=== PATIENT | female | born 1965 | race Caucasian/White ===

== ENCOUNTER → 2017-01-21 | Day surgery (SDC) | payer OTHER ==
[~2017-01-21] VITALS: Ht 172.7 cm; Wt 97.5 kg
[~2017-01-21] MED LIST: *RESP: ALBUTEROL 2.5 MG/3 ML NEB (PRN) PERIprocedural Use ONLY NEB ONE; ACETAMINOPHEN 1000 MG/100 ML VIAL IV ONE; AMLO10TA2 PO; ATEN100T PO; CHLORHEXIDINE GLUCONATE 2 % 1 PACK (2 CLOTHS) TOPICAL PRN; CLON0.2T PO; DEXAMETHASONE SOD PHOS 4 MG/ML VIAL ONE; DO NOT ADM ANY ANTICOAGULANT DRUGS PRN; ESTR0.62 VAGINAL; ESTR42.5V VAGINAL; FAMOTIDINE 20 MG/2 ML VIAL ONE; FURO40TA PO; HYDROmorphone HCL PF 1 MG/ML VIAL IV PRN; IBUP800T23 PO; INSULIN HUMAN REGULAR 1,000 UNITS/10 ML VIAL SQ PRN; LACTATED RINGER'S 1000 ML IV PRN; METOPROLOL TARTRATE 25 MG TAB PO PRN; MIDAZOLAM HCL 2 MG/2 ML VIAL ONE; MORPHINE SULFATE 4 MG/ML INJ ONE; NEUR300C PO; ONDANSETRON HCL 4 MG/2 ML VIAL IV PUSH ONE; ONDANSETRON HCL 4 MG/2 ML VIAL IV PUSH PRN; PERC5TAB12 PO; PLAV75TA29 PO; POTA-163 PO; POVIDONE IODINE 5% (ANTISEPSIS KIT) 4 APPLICATIONS EACH NARE PRN; PROPOFOL 200 MG/20 ML AMP IV ONE; SIMV20TA PO; SODIUM CHLORID 0.9% 500 ML IV PRN; TRAZ100T6 PO; VENL150C39 PO; VENL75TA PO; ZOFR4TAB PO; ceFAZolin 1,000 MG/NS 100 ML IV SCH; fentaNYL CITRATE 250 MCG/5 ML AMP ONE; oxyCODONE/ACETAMINOPHEN 10 MG/325 MG TAB PO PRN
--- NOTE | 2017-01-21 06:14 | RADRPT ---
EXAM DATE/TIME: 01/21/2017 05:44 [facility] COMPARISON: No previous studies available for comparison. INDICATIONS : Abdomen pain. Pre-OP lithotripsy. MEDICAL HISTORY : None. SURGICAL HISTORY : None. ENCOUNTER: Initial ACUITY: 1 day PAIN SCORE: 0/10 LOCATION: Bilateral abdomen FINDINGS: There is an approximately 8 mm stone faintly seen projecting over the right upper pole and probably 3 and 5 mm stones of the left lower pole. No perceptible ureteral calculus. Bowel gas pattern is nonob structive. CONCLUSION: Faint bilateral renal stones as above. No perceptible ureteral calculus. Nonobstructive bowel gas pat tern. Lino Morales MD on January 21, 2017 at 6:10 Board Certified Radiologist. This report was verified electronically.
[2017-01-21 06:17] VITALS: BP 111/72; PULSE 77; RESP 18; TEMP 98.4; O2SAT 96
--- NOTE | 2017-01-21 06:44 | EKG ---
Date Performed: 01/21/2017 Time Performed: 06:29:02 PTAGE: 52 years EKG: Sinus rhythm LEFT AXIS DEVIATION ANTEROSEPTAL MYOCARDIAL INFARCTION , OF INDETERMINATE AGE ABNORMAL ECG NO PREVIOUS TRACING DOCTOR: Matteo Lund Interpretating Date/Time 01/21/2017 06:43:03
[2017-01-21 06:56] LABS: AUTOMATED NEUTROPHIL # 5.1 TH/MM3 (1.8-7.7); BASOPHIL # 0.1 TH/MM3 (0-0.2); BASOPHIL % 1.1 % (0.0-2.0); EOSINOPHIL # 0.3 TH/MM3 (0-0.4); EOSINOPHIL % 3.4 % (0.0-4.0); HEMATOCRIT 34.3 % (35.0-46.0); HEMO FLAGS DIFF FINAL; LYMPH % 26.5 % (9.0-44.0); LYMPHOCYTE # 2.3 TH/MM3 (1.0-4.8); MEAN CELL VOLUME 94.7 FL (80.0-100.0); MEAN CORPUSCULAR HEMOGLOBIN 32.7 PG (27.0-34.0); MEAN CORPUSCULAR HGB CONC 34.5 % (32.0-36.0); MONO % 10.9 % (0.0-8.0); NEUT % 58.1 % (16.0-70.0); PLATELET COUNT 177 TH/MM3 (150-450); RED BLOOD COUNT 3.62 MIL/MM3 (4.00-5.30); RED CELL DISTRIBUTION WIDTH 15.9 % (11.6-17.2); WHITE BLOOD COUNT 8.8 TH/MM3 (4.0-11.0)
--- NOTE | 2017-01-21 08:32 | PD.OP ---
Operative Report Date of Surgery: Jan 21, 2017 Preoperative Diagnosis: Left lower pole renal calculi Postoperative Diagnosis: Same Procedure: Left extracoporeal shockwave lithotripsy Anesthesia: Gen. LMA Surgeon: Kartik Borges Building Guard Deputy Sheriff(s): None Resident Surgeon: None Operation and Findings: 52-year-old female with findings of left lower pole renal calculi who elected to undergo left extracoporeal shockwave lithotripsy. Risk and benefits were discussed preoperatively and she is willing to proceed. Patient is brought to the operating room identified myself as Summer Goff. She was placed on the operating room table in the supine position, received preprocedure antibiotics and general LMA anesthesia was administered. The stone was localized under fluoroscopic imaging guidance. ESWL therapy commenced. Patient received a total 2500 shocks with power level up to 10. Patient received a total of 2500 shocks. Good fragmentation the stone was visualized under fluoroscopic imaging guidance. She tolerated procedure well was we'll consider transfer to recovery was stable condition. She'll follow-up in 2 weeks and obtain a KUB x-ray prior to her office visit. Kartik Borges DO Jan 21, 2017 08:32
[2017-01-21 10:27] VITALS: BP 107/62; PULSE 76; RESP 18; TEMP 98; O2SAT 97
== END | disposition home or self-care (01) ==
LOC: HSDC 05:25
PROVIDERS: ATTEND Urology
DX: N20.0 Calculus of kidney (principal); R94.31 Abnormal electrocardiogram [ECG] [EKG]
CPT/HCPCS: 00873; 50590; 74000; 85025; 93005; J0131; J0690; J1100; J2250; J2270; J2405; J3010; J7120; J7613

== ENCOUNTER → 2017-02-19 | Outpatient (CLI) | payer OTHER ==
[~2017-02-19] MED LIST changes: -*RESP: ALBUTEROL 2.5 MG/3 ML NEB (PRN) PERIprocedural Use ONLY NEB ONE; -ACETAMINOPHEN 1000 MG/100 ML VIAL IV ONE; -CHLORHEXIDINE GLUCONATE 2 % 1 PACK (2 CLOTHS) TOPICAL PRN; -DEXAMETHASONE SOD PHOS 4 MG/ML VIAL ONE; -DO NOT ADM ANY ANTICOAGULANT DRUGS PRN; -ESTR42.5V VAGINAL; -FAMOTIDINE 20 MG/2 ML VIAL ONE; -HYDROmorphone HCL PF 1 MG/ML VIAL IV PRN; -INSULIN HUMAN REGULAR 1,000 UNITS/10 ML VIAL SQ PRN; -LACTATED RINGER'S 1000 ML IV PRN; -METOPROLOL TARTRATE 25 MG TAB PO PRN; -MIDAZOLAM HCL 2 MG/2 ML VIAL ONE; -MORPHINE SULFATE 4 MG/ML INJ ONE; -ONDANSETRON HCL 4 MG/2 ML VIAL IV PUSH ONE; -ONDANSETRON HCL 4 MG/2 ML VIAL IV PUSH PRN; -POVIDONE IODINE 5% (ANTISEPSIS KIT) 4 APPLICATIONS EACH NARE PRN; -PROPOFOL 200 MG/20 ML AMP IV ONE; -SODIUM CHLORID 0.9% 500 ML IV PRN; -VENL75TA PO; -ZOFR4TAB PO; -ceFAZolin 1,000 MG/NS 100 ML IV SCH; -fentaNYL CITRATE 250 MCG/5 ML AMP ONE; -oxyCODONE/ACETAMINOPHEN 10 MG/325 MG TAB PO PRN
[2017-02-19 10:13] LABS: AUTOMATED NEUTROPHIL # 7.4 TH/MM3 (1.8-7.7); BASOPHIL # 0.1 TH/MM3 (0-0.2); BASOPHIL % 0.8 % (0.0-2.0); EOSINOPHIL # 0.3 TH/MM3 (0-0.4); EOSINOPHIL % 2.7 % (0.0-4.0); HEMATOCRIT 39.7 % (35.0-46.0); HEMO FLAGS DIFF FINAL; LYMPHOCYTE # 2.3 TH/MM3 (1.0-4.8); MEAN CELL VOLUME 96.7 FL (80.0-100.0); MEAN CORPUSCULAR HEMOGLOBIN 32.5 PG (27.0-34.0); MEAN CORPUSCULAR HGB CONC 33.6 % (32.0-36.0); MONO % 8.6 % (0.0-8.0); NEUT % 66.9 % (16.0-70.0); PLATELET COUNT 243 TH/MM3 (150-450); RED CELL DISTRIBUTION WIDTH 16.2 % (11.6-17.2); WHITE BLOOD COUNT 11.1 TH/MM3 (4.0-11.0)
[2017-02-19 10:21] LABS: BACTERIA, URINE OCC /hpf; BLOOD, URINE NEG (NEG); COMMENT (UR) CULT NOT INDICATED; CULTURE IF INDICATED CULT NOT INDICATED; GLUCOSE,URINE NEG (NEG); KETONE, URINE NEG (NEG); NITRITE,URINE NEG (NEG); SQUAMOUS EPITHELIAL CELL URINE 8 /hpf (0-5); URINE COLOR YELLOW (YELLW/STRAW)
[2017-02-19 10:37] LABS: ANION GAP 7 MEQ/L (5-15); AST (GOT) 10 U/L (15-37); BICARBONATE 28.6 MEQ/L (21.0-32.0); BLOOD UREA NITROGEN 16 MG/DL (7-18); CHLORIDE 105 MEQ/L (98-107); GLOMERULAR FILTRATION RATE 64 ML/MIN (>89); GLUCOSE,FASTING 175 MG/DL (74-99); POTASSIUM 4.2 MEQ/L (3.5-5.1); SODIUM (NA) 141 MEQ/L (136-145)
[2017-02-19 10:39] LABS: ALKALINE PHOSPHATASE 56 U/L (45-117); ALT (GPT) 29 U/L (10-53); TOTAL BILIRUBIN ADULT 0.2 MG/DL (0.2-1.0)
== END ==
LOC: CPRE 09:39
PROVIDERS: ATTEND Obstetrics & Gynecology Gynecology
DX: Z01.810 Encounter for preprocedural cardiovascular examination (principal); Z01.812 Encounter for preprocedural laboratory examination; N39.3 Stress incontinence (female) (male)
CPT/HCPCS: 36415; 80053; 81001; 85025

== ENCOUNTER → 2017-03-04 | Day surgery (SDC) | payer MEDICAID, OTHER ==
[~2017-03-04] VITALS: Ht 172.7 cm; Wt 96.5 kg
[~2017-03-04] MED LIST changes: +*RESP: ALBUTEROL 2.5 MG/3 ML NEB (PRN) PERIprocedural Use ONLY NEB ONE; +ACETAMINOPHEN 1000 MG/100 ML VIAL IV ONE; +CHLORHEXIDINE GLUCONATE 2 % 1 PACK (2 CLOTHS) TOPICAL PRN; +DEXAMETHASONE SOD PHOS 4 MG/ML VIAL ONE; +DO NOT ADM ANY ANTICOAGULANT DRUGS PRN; +ESTROGENS CONJUGATED VAG CREA 15 APPL/30 GM TUBE ONE; +FAMOTIDINE 20 MG/2 ML VIAL ONE; +FLUORESCEIN SOD 10% SOLN 500 MG/5 ML AMP ONE; +INSULIN HUMAN REGULAR 1,000 UNITS/10 ML VIAL SQ PRN; +KETOROLAC TROMETHAMINE 30 MG/ML (IVP) VIAL IV PUSH PRN; +KETOROLAC TROMETHAMINE 60 MG/2 ML (IM) VIAL IM ONE; +LACTATED RINGER'S 1000 ML IV PRN; +LIDOCAINE 1%/EPINEPHrine 1:100,000 SOLN 20 ML VIAL ONE; +METHYLENE BLUE 10 MG/ML VIAL OTHER ONE; +METOPROLOL TARTRATE 25 MG TAB PO PRN; +MIDAZOLAM HCL 2 MG/2 ML VIAL ONE; +NEOSTIGMINE 3 MG/3 ML SYR IV ONE; +ONDANSETRON HCL 4 MG/2 ML VIAL IV PUSH ONE; +ONDANSETRON HCL 4 MG/2 ML VIAL IV PUSH PRN; +POVIDONE IODINE 5% (ANTISEPSIS KIT) 4 APPLICATIONS EACH NARE PRN; +PROPOFOL 200 MG/20 ML AMP IV ONE; +SODIUM CHLORID 0.9% 500 ML IV PRN; +ceFAZolin 2 GM PREMIX 50 ML IV SCH; +fentaNYL CITRATE 250 MCG/5 ML AMP ONE; +traMADol HCL 50 MG TAB PO PRN
[2017-03-04 07:45] VITALS: BP 115/81; PULSE 61; RESP 18; TEMP 98.1; O2SAT 96
--- NOTE | 2017-03-04 11:28 | MP ---
cc: CHRISTIAN ACOSTA,CHARLOTTE SMILEY MD. DATE OF SURGERY 03/04/2017 PREOPERATIVE DIAGNOSES Stress urinary incontinence and loss of perineal body. POSTOPERATIVE DIAGNOSIS Stress urinary incontinence and loss of perineal body with external sphincter defect from 10 to 2 o'clock position. SURGEON Ryan Braxton MD ANESTHESIA General endotracheal PROCEDURE 1. Transobturator tape using Desara polypropylene sling manufactured by [employer]. 2. Anterior/posterior repair. 3. External sphincteroplasty end-to-end approach. 4. Diagnostic cystoscopy CERTIFIED PROFESSIONAL CONTROLLER Randall staff x2 FLUIDS 1000 cc crystalloid BLOOD LOSS 25 cc URINE OUTPUT 150 cc FINDINGS External genitalia normal. POP-Q score: Aa is -1, Ap is -1. Point C is -8. Total vaginal length is 10. Genital hiatus is 7. Perineal body is 2 which is essentially represented only by a skin bridge. There is very little substance to the perineal body and there is a sphincter defect at the 10 o'clock to 2 o'clock position. Following repair POP-Q score: Aa is -3, Ap is -3. Point C is 08. Total vaginal length is 10. Genital hiatus is 5. Perineal body is 5. The cystoscopy is normal following repair. Rectal exam was normal following repair. Cystoscopy shows normal trigone, good coaptation of urethra. Ureteral orifices patent x2. Dome and base of bladder normal. SPECIMENS None COMPLICATIONS None DISPOSITION To the Recovery Room stable. COUNTS Needle and sponge counts correct. DRAINS Quiroga catheter DVT PROPHYLAXIS Sequential compression device. ANTIBIOTIC PROPHYLAXIS Two grams of Ancef. TIME OUT PROCEDURE Per protocol. SUMMARY OF INDICATIONS FOR THE PROCEDURE The patient with symptomatic stress urinary continence. She has had urodynamic studies performed that shows leaking at 50% capacity, no detrusor instability. Total capacity is approximately 300 cc. The patient also made note of issues with the perineal body. On exam, this is diminished and she wanted this area repaired. PROCEDURE The patient was taken to the operating theater, identified, prepped and draped in a fashion appropriate for the planned procedure. She was in the dorsal lithotomy position with careful attention paid to placement of legs in stirrups to avoid undue stress to sensitive neurovascular structures. The above findings noted. Neurovascular integrity documented. Quiroga catheter was placed. Methylene blue was instilled into the bladder. Obturator foramen were identified, outlined, and infiltrated with epinephrine/lidocaine solution. The vaginal mucosa was infiltrated with epinephrine/lidocaine solution. The length of the urethra was identified by palpating the Quiroga bulb. Sharp dissection was used to mobilize the urethra and the paravesical tissues. There was no spill of methylene blue with dissection. A C-hook was placed in a lateral to medial position on each side of the obturator foramen. Then a polypropylene sling was placed using a scalpel handle as a spacer. This was put in the mid urethra with good position and no undue tensioning. The remainder of the anterior repair was performed in standard fashion. The vaginal mucosa was trimmed. The vaginal mucosa was closed with a running Vicryl suture and hemostatic matrix was used to obviate the need for packing. Cystoscopy was performed using a 17-Faroese bridge and a 70 degree scope with the above findings noted, but no damage to the urethra or dome or base of bladder. Posterior repair performed without complication and this was mainly a distal repair. We used delayed absorbable suture to close the mucosa. The issue with the perineal body was more pronounced than we had anticipated. She actually had very little perineal body and a classic dove tail sign was noted. We performed an external sphincteroplasty end-to-end technique which gave us a good repair of the perineal body and then we did a subcuticular closure with 3-0 Vicryl suture. Delayed absorbable suture of 0-Vicryl was used for the sphincteroplasty. Rectal exam confirmed improvement of the sphincter complex. There was no compromise of the lumen. Hemostasis was good at all suture lines. The patient reversed from anesthesia and taken to the recovery room in stable condition. MD WILLY Scott/JANET /11:00 AM 11:08 AM
[2017-03-04 11:55] VITALS: BP 98/63; PULSE 61; RESP 20; TEMP 97.8; O2SAT 96
== END | disposition home or self-care (01) ==
LOC: HSDC 07:05
PROVIDERS: ATTEND Obstetrics & Gynecology Gynecology
DX: N39.3 Stress incontinence (female) (male) (principal)
CPT/HCPCS: 00942; 57260; 57288; C1771; J0131; J0690; J1100; J1885; J2250; J2405; J2710; J3010; J7120; J7613

== ENCOUNTER → 2017-06-30 | Outpatient (CLI) | payer OTHER ==
[~2017-06-30] MED LIST changes: -*RESP: ALBUTEROL 2.5 MG/3 ML NEB (PRN) PERIprocedural Use ONLY NEB ONE; -ACETAMINOPHEN 1000 MG/100 ML VIAL IV ONE; +ALBUAER3 INH; -CHLORHEXIDINE GLUCONATE 2 % 1 PACK (2 CLOTHS) TOPICAL PRN; -DEXAMETHASONE SOD PHOS 4 MG/ML VIAL ONE; -DO NOT ADM ANY ANTICOAGULANT DRUGS PRN; -ESTROGENS CONJUGATED VAG CREA 15 APPL/30 GM TUBE ONE; -FAMOTIDINE 20 MG/2 ML VIAL ONE; -FLUORESCEIN SOD 10% SOLN 500 MG/5 ML AMP ONE; +IBUP1TAB7 PO; -IBUP800T23 PO; -INSULIN HUMAN REGULAR 1,000 UNITS/10 ML VIAL SQ PRN; -KETOROLAC TROMETHAMINE 30 MG/ML (IVP) VIAL IV PUSH PRN; -KETOROLAC TROMETHAMINE 60 MG/2 ML (IM) VIAL IM ONE; -LACTATED RINGER'S 1000 ML IV PRN; -LIDOCAINE 1%/EPINEPHrine 1:100,000 SOLN 20 ML VIAL ONE; -METHYLENE BLUE 10 MG/ML VIAL OTHER ONE; -METOPROLOL TARTRATE 25 MG TAB PO PRN; -MIDAZOLAM HCL 2 MG/2 ML VIAL ONE; -NEOSTIGMINE 3 MG/3 ML SYR IV ONE; -ONDANSETRON HCL 4 MG/2 ML VIAL IV PUSH ONE; -ONDANSETRON HCL 4 MG/2 ML VIAL IV PUSH PRN; -PERC5TAB12 PO; -POVIDONE IODINE 5% (ANTISEPSIS KIT) 4 APPLICATIONS EACH NARE PRN; -PROPOFOL 200 MG/20 ML AMP IV ONE; -SODIUM CHLORID 0.9% 500 ML IV PRN; +TRAZ100T10 PO; -TRAZ100T6 PO; -ceFAZolin 2 GM PREMIX 50 ML IV SCH; -fentaNYL CITRATE 250 MCG/5 ML AMP ONE; -traMADol HCL 50 MG TAB PO PRN
[2017-06-30 10:44] LABS: AUTOMATED NEUTROPHIL # 5.7 TH/MM3 (1.8-7.7); BASOPHIL # 0.1 TH/MM3 (0-0.2); BASOPHIL % 0.7 % (0.0-2.0); EOSINOPHIL # 0.3 TH/MM3 (0-0.4); EOSINOPHIL % 3.5 % (0.0-4.0); HEMATOCRIT 38.9 % (35.0-46.0); HEMO FLAGS DIFF FINAL; LYMPH % 27.7 % (9.0-44.0); LYMPHOCYTE # 2.6 TH/MM3 (1.0-4.8); MEAN CELL VOLUME 92.8 FL (80.0-100.0); MEAN CORPUSCULAR HEMOGLOBIN 31.8 PG (27.0-34.0); MEAN CORPUSCULAR HGB CONC 34.2 % (32.0-36.0); MONO % 7.4 % (0.0-8.0); NEUT % 60.7 % (16.0-70.0); PLATELET COUNT 193 TH/MM3 (150-450); RED BLOOD COUNT 4.19 MIL/MM3 (4.00-5.30); RED CELL DISTRIBUTION WIDTH 14.2 % (11.6-17.2); WHITE BLOOD COUNT 9.4 TH/MM3 (4.0-11.0)
[2017-06-30 10:45] LABS: BACTERIA, URINE FEW /hpf; BLOOD, URINE SMALL (NEG); COMMENT (UR) CULT NOT INDICATED; CULTURE IF INDICATED CULT NOT INDICATED; GLUCOSE,URINE 70 mg/dL (NEG); KETONE, URINE NEG (NEG); NITRITE,URINE NEG (NEG); PH, URINE 5.5 (5.0-8.5); SQUAMOUS EPITHELIAL CELL URINE 5 /hpf (0-5); URINE COLOR LIGHT-YELLOW (YELLW/STRAW)
[2017-06-30 11:08] LABS: ALT (GPT) 53 U/L (10-53); ANION GAP 7 MEQ/L (5-15); AST (GOT) 23 U/L (15-37); BICARBONATE 28.5 MEQ/L (21.0-32.0); BLOOD UREA NITROGEN 15 MG/DL (7-18); CHLORIDE 103 MEQ/L (98-107); GLOMERULAR FILTRATION RATE 58 ML/MIN (>89); GLUCOSE,FASTING 285 MG/DL (74-99); POTASSIUM 3.9 MEQ/L (3.5-5.1); SODIUM (NA) 138 MEQ/L (136-145)
[2017-06-30 11:10] LABS: ALKALINE PHOSPHATASE 69 U/L (45-117); TOTAL BILIRUBIN ADULT 0.2 MG/DL (0.2-1.0)
== END ==
LOC: CPRE 09:36
PROVIDERS: ATTEND Obstetrics & Gynecology Gynecology
DX: Z01.812 Encounter for preprocedural laboratory examination (principal); Z01.810 Encounter for preprocedural cardiovascular examination; T83.71 Erosion of implanted mesh and other prosthetic materials to surrounding organ or tissue
CPT/HCPCS: 36415; 80053; 81001; 85025

== ENCOUNTER → 2017-07-03 | Day surgery (SDC) | payer MEDICAID, OTHER ==
--- NOTE | 2017-06-30 10:02 | MH ---
cc: MING NUGENT MD DATE OF ADMISSION 07/03/2017 DATE OF 1965 CHIEF COMPLAINT Erosion of midurethral sling. HISTORY OF PRESENT ILLNESS The patient is a 52-year-old white female 5, para 4 who has had a history of total abdominal hysterectomy, anterior posterior repair. She had a procedure for stress incontinence in January of this year and had done well with resolution of incontinence, but after her 8-week visit complained of pain with intercourse. Repeat exam showed erosion of the mid urethral sling. The patient had already been using Premarin vaginal cream and this erosion was approximately 2 cm and I did not feel this would spontaneously close. After discussion with the patient, she has opted for revision of the sling. PAST MEDICAL HISTORY 1. Hypertension 2. Hypercholesterolemia 3. Depression 4. Peripheral neuropathy 5. Distant history of DVT 6. History of substance abuse has been in the recovery for almost four years. PAST SURGICAL HISTORY 1. Abdominal hysterectomy 2. Anterior/posterior repair 3. Hernia repair 4. Tonsillectomy 5. Shock with therapy for nephrolithiasis 6. Transobturator sling anterior repair MEDICATIONS 1. Plavix 75 mg daily 2. Effexor 75 mg daily 3. Ranitidine 150 mg b.i.d. 4. Simvastatin 20 mg q. Day 5. Lasix 40 mg daily 6. Amlodipine 10 mg daily 7. Atenolol 100 mg daily. 8. Trazodone 100 mg q.h.s. 9. Clonidine 0.2 mg b.i.d. 10. Gabapentin 300 mg b.i.d. ALLERGIES CODEINE SOCIAL HISTORY In recovery for drug use. Has done well over the last 3-1/2 almost 4 years. , has a good social support. Smokes one-half to a pack a day. Has a 50 pack-year history of cigarettes. Was previously smoking two packs a day. FAMILY HISTORY Noncontributory OBSTETRICAL HISTORY Five deliveries largest baby 8 pounds. REVIEW OF SYSTEMS As above. No chest pain, orthopnea, PND. No nausea, vomiting, fever, or chills. No vaginal bleeding or discharge. Does have pain with intercourse. No stress incontinence. PHYSICAL EXAM On exam, she is afebrile. Vital signs are stable, height 5.8, weight is 218, BMI is 33, blood pressure 120/70. GENERAL: Patient is alert and oriented acute distress. No sign of cognitive dysfunction or depression. HEENT: Within normal limits. NECK: Supple. No JVD. CHEST: Clear. HEART: Regular rate and rhythm. ABDOMEN: Soft and nontender. No hepatosplenomegaly. No CVA tenderness. PELVIC: The pelvic exam will be detailed under anesthesia, but in the office we note erosion of the sling approximately 2 cm in the mid urethra. Further exam under anesthesia. EXTREMITIES: Normal, skin without rashes. NEUROLOGIC: Exam nonfocal. No DVT signs. ASSESSMENT Patient with erosion of midurethral sling. At this point, after a long discussion, we have decided to remove the eroded area of the sling, revise the anterior wall, perform cystoscopy. We will also try to perform a plication procedure to reduce the chance of recurrent incontinence. The patient is aware of the risks, benefits and alternatives to the planned procedure including damage to surrounding organs, bleeding, infection, incontinence, pain with intercourse. At this point, we will use antibiotic prophylaxis Ancef 1 gram. The patient has a distant history of DVT, but I believe that the sequential compression device will suffice here and we do not need to use additional heparin. Anticipate outpatient procedure. The patient does not want to use Toradol. She would rather use tramadol for pain control and it is reasonable, although she should have very little pain since we are working on the anterior vaginal wall. Anticipate outpatient procedure. MD WILLY Scott/JANET /9:39 AM /9:48 AM
[~2017-07-03] VITALS: Ht 172.7 cm; Wt 94.4 kg
[~2017-07-03] MED LIST changes: +*RESP: ALBUTEROL 2.5 MG/3 ML NEB (PRN) PERIprocedural Use ONLY NEB ONE; +CHLORHEXIDINE GLUCONATE 2 % 1 PACK (2 CLOTHS) TOPICAL PRN; +DEXAMETHASONE SOD PHOS 4 MG/ML VIAL IV ONE; +DO NOT ADM ANY ANTICOAGULANT DRUGS PRN; +GLYCOPYRROLATE 1 MG/5 ML SYRINGE IV PUSH ONE; +INSULIN HUMAN REGULAR 1,000 UNITS/10 ML VIAL SQ PRN; +KETOROLAC TROMETHAMINE 30 MG/ML (IVP) VIAL IV PUSH ONE; +KETOROLAC TROMETHAMINE 30 MG/ML (IVP) VIAL IV PUSH PRN; +KETOROLAC TROMETHAMINE 60 MG/2 ML (IM) VIAL IM PRN; +LACTATED RINGER'S 1000 ML INJ 500 ML IV ONE; +LACTATED RINGER'S 1000 ML IV PRN; +LIDOCAINE 1%/EPINEPHrine 1:100,000 SOLN 20 ML VIAL ONE; +LIDOCAINE HCL 1% PF 5 ML SYRINGE OTHER ONE; +METOPROLOL TARTRATE 25 MG TAB PO PRN; +NEOSTIGMINE 3 MG/3 ML SYR IV ONE; +ONDANSETRON HCL 4 MG/2 ML VIAL IV PUSH ONE; +ONDANSETRON HCL 4 MG/2 ML VIAL IV PUSH PRN; +POVIDONE IODINE 5% (ANTISEPSIS KIT) 4 APPLICATIONS EACH NARE PRN; +PROPOFOL 200 MG/20 ML AMP IV ONE; +ROCURONIUM INJ 50 MG/5 ML SYRINGE IV PUSH ONE; +SODIUM CHLORID 0.9% 500 ML IV PRN; +ePHEDrine/NS 25 MG/5 ML SYR IV ONE; +ePHEDrine/NS 25 MG/5 ML SYR ONE; +traMADol HCL 50 MG TAB PO PRN
[2017-07-03] MEDS: ceFAZolin 1,000 MG/NS 100 ML IV SCH ×4 (08:11→08:55)
--- NOTE | 2017-07-03 09:36 | PD.OP ---
Operative Report Date of Surgery: Jul 03, 2017 Preoperative Diagnosis: (1) Erosion of transobdurator mid-urethral sling Postoperative Diagnosis: (1) Impaired integrity of skin of perineum (2) Erosion of transobdurator mid-urethral sling Procedure: Excision of sling Anterior Repair Perineorrhaphy Anesthesia: GETA Surgeon: Ryan Braxton Bar Roller(s): [facility] [place] Operation and Findings: Ryan Aldana MD Jul 03, 2017 09:36
--- NOTE | 2017-07-03 10:12 | MP ---
cc: MING NUGENT MD DATE OF SURGERY 07/03/2017 PREOPERATIVE DIAGNOSES Erosion of mid urethral sling (code T83.712A) POSTOPERATIVE DIAGNOSES Erosion of mid urethral sling (code T83.712A) with impaired integrity of perineal skin (code R23.9) PROCEDURE Revision of midurethral sling (code 46869), anterior repair (codes 01201), perineorrhaphy (code 21204). SURGEON Ming Nugent MD ANESTHESIA General endotracheal BLOOD LOSS 5 cc URINE OUTPUT 200 cc EXTENSION CLERK [place] staff x1 FLUIDS 1000 cc FINDINGS External genitalia notable for a small defect in the perineal body and a skin bridge at the fourchette. Also noted an approximately 1 cm of sling erosion in the mid urethra. Pop Q score: Aa is -2, Ap is -2. Point C is -8. Total vaginal length is 10. Genital hiatus is 6. Perineal body is 5 with a 1 cm skin bridge. The cystoscopy prior to procedure was normal with no sign of any erosion into the urethra. Following the procedure, POP-Q score: Aa is -2, Ap is -2. Point C is -8. Total vaginal length is 10. Genital hiatus is 5. Perineal body is 5. Cystoscopy was normal after repair and rectal exam normal. SPECIMEN Segment of sling for gross analysis only. COMPLICATIONS None DISPOSITION To the Recovery Room stable. COUNTS Needle and sponge counts correct. DRAINS Quiroga catheter DISPOSITION To recovery room stable. ANTIBIOTIC PROPHYLAXIS Ancef 2 grams DVT PROPHYLAXIS Sequential compression device. SUMMARY OF INDICATIONS FOR THE PROCEDURE Patient with prior placement of polypropylene sling. Approximately three months after repair, she noted erosion of sling which caused pain with intercourse. Exam in the office confirmed erosion. Risk factors for erosion are smoking and poorly managed adult onset diabetes. PROCEDURE The patient was taken to the operating room theater, identified, prepped and draped in the usual fashion appropriate for the planned procedure. She was in the dorsolithotomy position with careful attention paid to placement of legs in the stirrups to avoid undue stress to sensitive neurovascular structures. Above findings noted. Neurovascular integrity documented. Cystoscopy was performed using a 17-Korean bridge, a 70 degree scope, above findings noted. After cystoscopy, a Quiroga catheter was placed and methylene blue was instilled into the bladder. The sling erosion was easily identified. We freshened up the edges and developed a small flap making sure to keep the urethra intact. We removed a small segment of sling and then used plication sutures to give support to the urethra. Also closed the vaginal mucosa and anterior repair incisions with delayed absorbable interrupted suture. The patient also had an area at the perineal body that had a small defect and the skin bridge was approximately 1 cm. This area was revised and then closed with 3-0 Vicryl suture with a subcuticular stitch. The patient tolerated the procedure well and went to the recovery room in stable condition. MD WILLY Scott/JANET /9:48 AM /9:58 AM
[2017-07-03 12:29] VITALS: BP 106/65; PULSE 65; RESP 18; TEMP 98; O2SAT 95
== END | disposition home or self-care (01) ==
LOC: HSDC 06:28
PROVIDERS: ATTEND Obstetrics & Gynecology Gynecology
DX: T83.712A Erosion of implanted urethral mesh to surrounding organ or tissue, initial encounter (principal); I10 Essential (primary) hypertension; E78.00 Pure hypercholesterolemia, unspecified; G62.9 Polyneuropathy, unspecified; F32.9 Major depressive disorder, single episode, unspecified; Z86.718 Personal history of other venous thrombosis and embolism; Z79.899 Other long term (current) drug therapy; Z79.02 Long term (current) use of antithrombotics/antiplatelets; Y83.8 Other surgical procedures as the cause of abnormal reaction of the patient, or of later complication, without mention of misadventure at the time of the procedure
CPT/HCPCS: 00400; 00860; 00942; 56810; 57240; 57287; 88305; 94664; J0690; J1100; J1885; J2405; J2710; J3010; J7120; J7613

== ENCOUNTER → 2017-09-23 | Day surgery (SDC) | payer OTHER ==
[~2017-09-23] VITALS: Ht 172.7 cm; Wt 93.8 kg
[~2017-09-23] MED LIST changes: +*ONDANSETRON 4 MG VIAL PERIprocedural Use ONLY ONE; -*RESP: ALBUTEROL 2.5 MG/3 ML NEB (PRN) PERIprocedural Use ONLY NEB ONE; -DEXAMETHASONE SOD PHOS 4 MG/ML VIAL IV ONE; -ESTR0.62 VAGINAL; +ESTR1TAB78 VAGINAL; -GLYCOPYRROLATE 1 MG/5 ML SYRINGE IV PUSH ONE; +HYDROmorphone HCL PF 2 MG/ML VIAL IV PUSH PRN; -KETOROLAC TROMETHAMINE 30 MG/ML (IVP) VIAL IV PUSH ONE; -KETOROLAC TROMETHAMINE 30 MG/ML (IVP) VIAL IV PUSH PRN; -KETOROLAC TROMETHAMINE 60 MG/2 ML (IM) VIAL IM PRN; +LACTATED RINGER'S 1000 ML INJ 1,000 ML IV ONE; -LACTATED RINGER'S 1000 ML INJ 500 ML IV ONE; -LIDOCAINE 1%/EPINEPHrine 1:100,000 SOLN 20 ML VIAL ONE; +MIDAZOLAM HCL 2 MG/2 ML VIAL ONE; -NEOSTIGMINE 3 MG/3 ML SYR IV ONE; -ONDANSETRON HCL 4 MG/2 ML VIAL IV PUSH ONE; -ROCURONIUM INJ 50 MG/5 ML SYRINGE IV PUSH ONE; +ceFAZolin 1,000 MG/NS 100 ML IV SCH; -ePHEDrine/NS 25 MG/5 ML SYR IV ONE; -ePHEDrine/NS 25 MG/5 ML SYR ONE; +oxyCODONE/ACETAMINOPHEN 10 MG/325 MG TAB ONE; +oxyCODONE/ACETAMINOPHEN 10 MG/325 MG TAB PO ONE
--- NOTE | 2017-09-23 07:46 | RADRPT ---
EXAM DATE/TIME: 09/23/2017 07:21 [facility] COMPARISON: ABDOMEN KUB ONLY, January 21, 2017, 5:44. INDICATIONS : Pre-op lithotripsy. MEDICAL HISTORY : None. SURGICAL HISTORY : Hysterectomy. Lithotripsy. ENCOUNTER: Initial ACUITY: 1 day PAIN SCORE: 0/10 LOCATION: abdomen FINDINGS: Supine view of the abdomen was performed. Bowel gas pattern is within normal limits. There is a faint calcification measuring approximate 6 mm overlying the lower pole the left kidney. This is stable co mpared to the prior exam of 01/21/2017. No definite calcifications are seen overlying the right kidney . There is a calcified phlebolith deep in the left pelvis. The bony structures are stable and intact. . The lung bases are grossly clear. CONCLUSION: There is a stable faint calcification measuring approximate 6 mm overlying the lower pole left kidney suggestive of a renal stone. No definite calcifications are seen overlying the left kidney at this t elliot. Feng Avila MD on September 23, 2017 at 7:40 Board Certified Radiologist. This report was verified electronically.
[2017-09-23 08:38] LABS: AUTOMATED NEUTROPHIL # 4.3 TH/MM3 (1.8-7.7); BASOPHIL # 0.1 TH/MM3 (0-0.2); EOSINOPHIL # 0.2 TH/MM3 (0-0.4); EOSINOPHIL % 2.8 % (0.0-4.0); HEMATOCRIT 38.8 % (35.0-46.0); HEMOGLOBIN 13.2 GM/DL (11.6-15.3); LYMPH % 27.2 % (9.0-44.0); LYMPHOCYTE # 2.1 TH/MM3 (1.0-4.8); MEAN CORPUSCULAR HEMOGLOBIN 30.3 PG (27.0-34.0); MEAN CORPUSCULAR HGB CONC 34.1 % (32.0-36.0); MEAN PLATELET VOLUME 8.1 FL (7.0-11.0); MONO % 12.7 % (0.0-8.0); NEUT % 56.3 % (16.0-70.0); PLATELET COUNT 204 TH/MM3 (150-450); RED BLOOD COUNT 4.36 MIL/MM3 (4.00-5.30); WHITE BLOOD COUNT 7.6 TH/MM3 (4.0-11.0)
--- NOTE | 2017-09-23 09:54 | PD.OP ---
Operative Report Date of Surgery: Sep 23, 2017 Preoperative Diagnosis: Left renal calculi Postoperative Diagnosis: Same Procedure: Left extracorporeal shockwave lithotripsy Anesthesia: Gen. LMA Surgeon: Kartik Borges Lead Javascript Developer(s): None Resident Surgeon: None Operation and Findings: 52-year-old female presents with history of bilateral renal calculi. She is noted to have a 6-7 mm left lower pole stone and is here today to undergo treatment. Risk and benefits discussed preoperatively and she was willing to proceed. Patient was brought to the operating room identify myself as Summer Goff. She was placed on the operating table in the supine position. She received preprocedure antibiotics and general LMA anesthesia was administered. Under fluoroscopic and ultrasound guidance the stone was visualized in the left lower pole. ESWL therapy commenced and she received a total 2500 shocks. Good fragmentation the stone was visualized under ultrasound guidance. She tolerated the procedure well and was awoken and extubated and transferred to recovery stable condition. She will follow-up in one month and obtain a CT scan prior to evaluate residual stone burden on the right side. Kartik Borges DO Sep 23, 2017 09:54
[2017-09-23 11:15] VITALS: BP 107/68; PULSE 64; RESP 20; TEMP 97.5; O2SAT 98
== END | disposition home or self-care (01) ==
LOC: HSDC 06:57
PROVIDERS: ATTEND Urology
DX: N20.0 Calculus of kidney (principal); F17.210 Nicotine dependence, cigarettes, uncomplicated; I10 Essential (primary) hypertension; I25.2 Old myocardial infarction; I73.9 Peripheral vascular disease, unspecified; Z86.711 Personal history of pulmonary embolism
CPT/HCPCS: 00873; 50590; 74018; 85025; J0690; J2250; J2405; J3010; J7120

== ENCOUNTER → 2017-11-11 | Day surgery (SDC) | payer OTHER ==
[~2017-11-11] VITALS: Ht 172.7 cm; Wt 90.4 kg
[~2017-11-11] MED LIST changes: -*ONDANSETRON 4 MG VIAL PERIprocedural Use ONLY ONE; -HYDROmorphone HCL PF 2 MG/ML VIAL IV PUSH PRN; -INSULIN HUMAN REGULAR 1,000 UNITS/10 ML VIAL SQ PRN; -LACTATED RINGER'S 1000 ML INJ 1,000 ML IV ONE; +ONDANSETRON HCL 4 MG/2 ML VIAL IV ONE; +PERC10TA27 PO; -ceFAZolin 1,000 MG/NS 100 ML IV SCH; +ePHEDrine/NS 25 MG/5 ML SYRINGE IV ONE; -oxyCODONE/ACETAMINOPHEN 10 MG/325 MG TAB ONE; -oxyCODONE/ACETAMINOPHEN 10 MG/325 MG TAB PO ONE; +oxyCODONE/ACETAMINOPHEN 10 MG/325 MG TAB PO PRN; -traMADol HCL 50 MG TAB PO PRN
--- NOTE | 2017-11-11 06:34 | RADRPT ---
EXAM DATE/TIME: 11/11/2017 06:19 [facility] COMPARISON: ABDOMEN KUB ONLY, September 23, 2017, 7:21. INDICATIONS : Pre OP lithotripsy. MEDICAL HISTORY : None. SURGICAL HISTORY : Hysterectomy. Lithotripsy. ENCOUNTER: Initial ACUITY: 1 day PAIN SCORE: 0/10 LOCATION: Bilateral abdomen FINDINGS: Supine view of the abdomen was performed. Subtle appearing bilateral renal calculi. The abdominal bow el gas pattern is normal. No abnormal masses, calcifications, or organomegaly is seen. The osseous structures are unremarkable. CONCLUSION: Subtle bilateral renal calculi. Ivan Mathias MD on November 11, 2017 at 6:32 Board Certified Radiologist. This report was verified electronically.
[2017-11-11 07:18] LABS: AUTOMATED NEUTROPHIL # 4.9 TH/MM3 (1.8-7.7); BASOPHIL # 0.1 TH/MM3 (0-0.2); BASOPHIL % 0.8 % (0.0-2.0); EOSINOPHIL # 0.3 TH/MM3 (0-0.4); EOSINOPHIL % 2.9 % (0.0-4.0); HEMATOCRIT 39.7 % (35.0-46.0); HEMOGLOBIN 13.3 GM/DL (11.6-15.3); LYMPH % 33.2 % (9.0-44.0); LYMPHOCYTE # 3.1 TH/MM3 (1.0-4.8); MEAN CELL VOLUME 87.3 FL (80.0-100.0); MEAN CORPUSCULAR HEMOGLOBIN 29.3 PG (27.0-34.0); MEAN CORPUSCULAR HGB CONC 33.6 % (32.0-36.0); MEAN PLATELET VOLUME 7.9 FL (7.0-11.0); MONO % 10.6 % (0.0-8.0); NEUT % 52.5 % (16.0-70.0); PLATELET COUNT 224 TH/MM3 (150-450); RED BLOOD COUNT 4.55 MIL/MM3 (4.00-5.30); WHITE BLOOD COUNT 9.4 TH/MM3 (4.0-11.0)
--- NOTE | 2017-11-11 08:52 | PD.OP ---
Operative Report Date of Surgery: Nov 11, 2017 Preoperative Diagnosis: (1) Renal calculus, right Postoperative Diagnosis: (1) Renal calculus, right Procedure: Extracorporeal shockwave lithotripsy right renal calculus Anesthesia: General Surgeon: Otto Wiseman Wellness Director(s): None Operation and Findings: Indication for procedure: Case of a pleasant 52-year-old female with history bilateral renal calculi who status post shockwave lithotripsy of her left sided calculus recently. Patient presents today to undergo right-sided shockwave lithotripsy. Operative procedure in detail: Patient was brought to the operating room suite placed supine on the OR table. She was then placed under general anesthesia. She next had her right renal calculi localized with fluoroscopy. She subsequent underwent shockwave lithotripsy of the largest right renal stone measuring approximately 6 mm. The patient received a total of 3000 shocks with a maximum power level setting of 6 utilizing the Dornier mobile lithotripsy unit. At the conclusion of the procedure the stone was spread out considerably consistent with fragmentation. The patient tolerated the procedure without complications and was transferred to the PACU in satisfactory condition. Otto Wiseman MD Nov 11, 2017 08:52
[2017-11-11 10:02] VITALS: BP 85/60; PULSE 68; RESP 20; TEMP 98; O2SAT 94
== END | disposition home or self-care (01) ==
LOC: HSDC 05:34
PROVIDERS: ATTEND Urology
DX: N20.0 Calculus of kidney (principal); I10 Essential (primary) hypertension; J44.9 Chronic obstructive pulmonary disease, unspecified; I25.2 Old myocardial infarction; F17.210 Nicotine dependence, cigarettes, uncomplicated; Z86.718 Personal history of other venous thrombosis and embolism; M19.90 Unspecified osteoarthritis, unspecified site
CPT/HCPCS: 00873; 50590; 74018; 85025; J2250; J2405; J7120